=== PATIENT | male | born 1985 | race American Indian/Alaskan Native ===

== ENCOUNTER 2019-05-06 22:47 | Emergency (ER) | payer SELFPAY ==
[2019-05-06] MEDS ORDERED: MAXIPIME/NS 2 GM/100 ML 2 GM/100 ML BAG IV ONE (23:00)
[2019-05-06] MEDS ORDERED: ZOFRAN ONE (23:00)
[2019-05-06] MEDS ORDERED: ZOFRAN IV ONE (23:00)
[2019-05-06] MEDS ORDERED: DILAUDID IV ONE (23:00)
[2019-05-06] MEDS ORDERED: NACL 0.9% 1000 ML 2,000 ML IV ONE (23:00)
[2019-05-06] MEDS ORDERED: DILAUDID ONE (23:00)
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
[2019-05-07] MEDS ORDERED: POLYSPORIN TP ONE (00:24)
[2019-05-07 01:09] VITALS: BP 150/90
== END 2019-05-07 01:07 | disposition home or self-care (01) ==
LOC: ED 22:47
DX: T20.26XA Burn of second degree of forehead and cheek, initial encounter (principal); T20.24XA Burn of second degree of nose (septum), initial encounter; T26.02XA Burn of left eyelid and periocular area, initial encounter; T26.01XA Burn of right eyelid and periocular area, initial encounter; T20.22XA Burn of second degree of lip(s), initial encounter; F17.200 Nicotine dependence, unspecified, uncomplicated; Z79.899 Other long term (current) drug therapy; X12.XXXA Contact with other hot fluids, initial encounter; Y93.89 Activity, other specified; Y92.098 Other place in other non-institutional residence as the place of occurrence of the external cause; Y99.8 Other external cause status
CPT/HCPCS: 16020; 96365; 96375; 99283; J1170; J2405